=== PATIENT | male | born 1995 | race Caucasian/White ===

== ENCOUNTER 2020-01-11 13:16 | Emergency (ER) | payer SELFPAY ==
[~2020-01-11] VITALS: Ht 177.8 cm; Wt 104.5 kg
[2020-01-11] MEDS ORDERED: CITALOPRAM HBR10 MG PO (13:30)
[2020-01-11 14:50] LABS: EOS # 0.1 (0.04-0.40); EOS % 1.2 % (0.0-4.0); HEMATOCRIT 45.5 % (42.0-52.0); HEMOGLOBIN 14.8 g/dL (13.5-18.0); LYMPH# 2.1 (1.50-4.00); MEAN CELL VOLUME 87 fl (78-100); MEAN CORPUSCULAR HEMOGLOBIN 28 pg (27-31); MEAN CORPUSCULAR HGB CONC 33 g/dL (33-37); MEAN PLATELET VOLUME 9.7 fl (7.4-10.4); MONO # 0.6 (0.20-0.80); NEU # 3.8 (1.40-6.50); PLATELET COUNT 272 K/mm3 (130-400); RED BLOOD COUNT 5.21 M/mm3 (4.20-5.60); RED CELL DISTRIBUTION WIDTH 13.4 % (11.5-14.5); WHITE BLOOD COUNT 6.6 K/mm3 (4.8-10.8)
[2020-01-11 14:53] LABS: ALBUMIN 4.3 g/dL (3.5-5.0)
[2020-01-11 14:54] LABS: POTASSIUM 4.5 mmol/L (3.5-5.1)
[2020-01-11 14:55] LABS: CALCIUM 9.4 mg/dL (8.3-10.5)
[2020-01-11 14:56] LABS: TOTAL PROTEIN 7.7 g/dL (6.4-8.3)
[2020-01-11 14:58] LABS: TOTAL BILIRUBIN 0.3 mg/dL (0.2-1.2)
[2020-01-11 15:19] LABS: URINE WBC 0 /hpf (0-3)
[2020-01-11 15:26] LABS: PH-URINE 5.5 (5.0 - 8.0); URINE APPEARANCE CLEAR; URINE BILIRUBIN NEGATIVE (NEGATIVE); URINE COLOR YELLOW; URINE GLUCOSE NEGATIVE (NEGATIVE); URINE KETONE NEGATIVE (NEGATIVE); URINE NITRATE NEGATIVE (NEGATIVE); URINE PROTEIN(semi-quant) NEGATIVE (NEGATIVE); URINE UROBILINOGEN NORMAL (NORMAL)
[2020-01-11 15:27] LABS: URINE BLOOD TRACE (NEGATIVE); URINE LEUKOCYTE ESTERASE NEGATIVE (NEGATIVE); URINE MUCUS PRESENT (NOT PRESENT)
[2020-01-11 16:08] VITALS: BP 119/47
== END 2020-01-11 16:10 | disposition home or self-care (01) ==
LOC: ED 13:16
PROVIDERS: Physician Assistant
DX: R10.32 Left lower quadrant pain (principal); R19.7 Diarrhea, unspecified; F41.9 Anxiety disorder, unspecified
CPT/HCPCS: J1885; Q9967

== ENCOUNTER 2020-05-29 23:34 | Emergency (ER) | payer BC ==
[~2020-05-29 23:34] MED LIST: CITALOPRAM HBR10 MG PO
[2020-05-30 00:40] VITALS: BP 123/66
== END 2020-05-30 00:40 | disposition home or self-care (01) ==
LOC: ED 23:34
DX: S46.912A Strain of unspecified muscle, fascia and tendon at shoulder and upper arm level, left arm, initial encounter (principal); W18.40XA Slipping, tripping and stumbling without falling, unspecified, initial encounter; Y92.59 Other trade areas as the place of occurrence of the external cause; Y99.0 Civilian activity done for income or pay
CPT/HCPCS: J1885

== ENCOUNTER 2020-08-14 17:14 | Emergency (ER) | payer BC ==
[2020-08-14] MEDS ORDERED: KETOROLAC10 MG PO (18:35)
[2020-08-14 18:47] VITALS: BP 116/68
== END 2020-08-14 18:47 | disposition home or self-care (01) ==
LOC: ED 17:14
DX: R07.89 Other chest pain (principal)
CPT/HCPCS: J1885

== ENCOUNTER → 2021-02-02 | Outpatient (CLI) | payer BC ==
[~2021-02-02] MED LIST changes: +AMBIEN5 M1 PO; +FLUTICASON0.05 MG/AC NS; +GUAIFENESIN AC473 ML PO; +KETOROLAC10 MG PO; +ZITHROMAX Z PA250 MG PO; +ZYRTEC ALLERGY10 MG PO
== END ==
LOC: LAB 16:24
DX: Z20.822 Contact with and (suspected) exposure to COVID-19 (principal)

== ENCOUNTER 2021-02-04 15:02 | Emergency (ER) | payer BC ==
[~2021-02-04] VITALS: Ht 172.7 cm; Wt 101.7 kg
[~2021-02-04 15:02] MED LIST changes: -AMBIEN5 M1 PO; -FLUTICASON0.05 MG/AC NS; -GUAIFENESIN AC473 ML PO; -ZITHROMAX Z PA250 MG PO; -ZYRTEC ALLERGY10 MG PO
[2021-02-04] MEDS ORDERED: FLUTICASON0.05 MG/AC NS (15:26)
[2021-02-04] MEDS ORDERED: ZYRTEC ALLERGY10 MG PO (15:27)
[2021-02-04] MEDS ORDERED: AMBIEN5 M1 PO (15:27)
[2021-02-04] MEDS ORDERED: GUAIFENESIN AC473 ML PO (16:19)
[2021-02-04] MEDS ORDERED: ZITHROMAX Z PA250 MG PO (16:26)
[2021-02-04 16:39] VITALS: BP 122/72
== END 2021-02-04 16:39 | disposition home or self-care (01) ==
LOC: ED 15:02
DX: J06.9 Acute upper respiratory infection, unspecified (principal); Z20.822 Contact with and (suspected) exposure to COVID-19

== ENCOUNTER → 2021-12-02 | Outpatient (CLI) | payer BC ==
[~2021-12-02] MED LIST changes: +AMBIEN5 M1 PO; +FLUTICASON0.05 MG/AC NS; +GUAIFENESIN AC473 ML PO; +ZITHROMAX Z PA250 MG PO; +ZYRTEC ALLERGY10 MG PO
[2021-12-02 17:11] LABS: ALBUMIN 4.5 g/dL (3.5-5.0); POTASSIUM 4.1 mmol/L (3.5-5.1)
[2021-12-02 17:14] LABS: TOTAL PROTEIN 7.9 g/dL (6.4-8.3)
[2021-12-02 17:15] LABS: TOTAL BILIRUBIN 0.3 mg/dL (0.2-1.2)
[2021-12-02 17:19] LABS: DIRECT BILIRUBIN 0.1 mg/dL (0.0-0.5)
== END ==
LOC: LAB 16:06
PROVIDERS: Family Medicine
DX: R10.13 Epigastric pain (principal); R14.0 Abdominal distension (gaseous)

== ENCOUNTER → 2022-07-03 | Outpatient (CLI) | payer BC | LOC: RAD 10:03 | DX: M54.50 Low back pain, unspecified (principal) ==